=== PATIENT | female | born 1990 | race Caucasian/White ===

== ENCOUNTER 2016-12-11 17:38 | Emergency (ER) | payer BC, OTHER ==
--- NOTE | 2016-12-11 18:45 | EDPHY ---
H & P Time Seen by Provider: 12/11/16 18:25 HPI/ROS: CHIEF COMPLAINT: Possible fishbone in throat HISTORY OF PRESENT ILLNESS: This patient is a 26 year old female presenting for evaluating of a possible fish bone stuck in her throat. She was eating bony fish last night for dinner and feels like there is still a fishbone stuck in her throat. She noticed the sensation right away after swallowing, and eating more food did not resolve it. She was able to eat and drink today, but notes pain with swallowing. She denies difficulty breathing, difficulty speaking, or other associated symptoms. REVIEW OF SYSTEMS: A 10 point review of systems was performed and is negative with the exception of the elements mentioned in the history of present illness. Past Medical/Surgical History: denies Social History: single Smoking Status: Never smoked Physical Exam: General Appearance: Alert, pleasant Eyes: Pupils equal and round ENT, Mouth: Mucous membranes moist, no FB visible Neck: Normal inspection, no stridor Respiratory: Lungs are clear to auscultation Cardiovascular: Regular rate and rhythm Gastrointestinal: Abdomen is soft and non-tender Neurological: A&O, nonfocal, normal gait Skin: Warm and dry Extremities: normal inspection Psychiatric: Mood and affect normal Constitutional: Initial Vital Signs Temperature (C) 36.8 C 12/11/16 17:49 Heart Rate 85 12/11/16 17:49 Respiratory Rate 18 12/11/16 17:49 Blood Pressure 103/72 12/11/16 17:49 O2 Sat (%) 98 12/11/16 17:49 O2 Delivery Mode Room Air Allergies/Adverse Reactions: No Known Allergies Allergy (Unverified 12/11/16 17:49) Home Medications: Medication Instructions Recorded NK [No Known Home Meds] 12/11/16 Medical Decision Making - Diagnostics Imaging Results: soft tissue neck XRay: no FB Imaging: I viewed and interpreted images myself ED Course/Re-evaluation: 26 year old female presents with concern for esophageal foreign body after swallowing a fish bone yesterday evening. Physical exam unremarkable, unable to visualize foreign body. Plan for x-ray to evaluate for possible foreign body. X-ray does not show foreign body. Likely esophageal abrasion secondary to FB. Plan to discharge home in good condition. She will follow up with ENT for symptoms unresolved in the next 24 hours. Return precautions discussed. The patient is comfortable with this plan. Differential Diagnosis: includes though not limited to esophageal FB, airway obstruction, oropharynx FB Departure - Departure Disposition: Home, Routine, Self-Care Clinical Impression: Sensation of foreign body in throat Condition: Good Instructions: Esophageal Foreign Body (ED) Additional Instructions: 1. Follow up with an ear, nose, and throat specialist for symptoms continuing after 24 hours. 2. Return to the emergency department for increased pain, difficulty swallowing , difficulty breathing, or other worsening of condition. Referrals: Andi Luo MD [Medical Doctor] - As per Instructions Report Scribed for: Sabra Osborn Report Scribed by: Andria Wick Date of Report: 12/11/16 Time of Report: 18:50 Physician Review and Approval Statement: 12/11/16 18:51 Portions of this note were transcribed by a medical translator. I personally performed a history, physical exam, medical decision making, and confirmed accuracy of information the transcribed note.
[2016-12-11 19:02] VITALS: BP 119/70; PULSE 79; RESP 15; TEMP 98.8; O2SAT 97
== END 2016-12-11 19:02 | disposition home or self-care (01) ==
DX: R09.89 Other specified symptoms and signs involving the circulatory and respiratory systems (principal)

== ENCOUNTER → 2017-01-01 | Outpatient (CLI) | payer OTHER | LOC: FIMAGING 17:34 | PROVIDERS: ATTEND Family Medicine | DX: M54.89 Other dorsalgia (principal) ==

== ENCOUNTER → 2018-05-30 | Outpatient (CLI) | payer BC, OTHER | LOC: BMCIMAGING 08:40 | PROVIDERS: ATTEND Nurse Practitioner Women's Health | DX: N83.291 Other ovarian cyst, right side (principal) ==